=== PATIENT | female | born 1985 | race Caucasian/White ===

== ENCOUNTER 2017-09-27 06:33 | Emergency (ER) | payer OTHER ==
[2017-09-27 07:22] VITALS: BMI 23.6
[2017-09-27 08:44] LABS: BASO % 0.3 % (0.0-2.0); EOS % 0.1 % (0.0-4.0); HEMATOCRIT 32.4 % (34.0-47.0); LYMPH # 1.1 K/uL (1.0-4.3); LYMPH % 9.1 % (20.0-40.0); MEAN CELL VOLUME 77.5 fl (81.0-99.0); MEAN CORPUSCULAR HEMOGLOBIN 25.2 pg (27.0-31.0); MEAN CORPUSCULAR HGB CONC 32.5 g/dL (33.0-37.0); MEAN PLATELET VOLUME 7.9 fl (7.2-11.7); MONO # 0.3 K/uL (0.0-0.8); MONO % 2.4 % (0.0-10.0); NEUT # 10.7 K/uL (1.8-7.0); NEUT % 88.1 % (50.0-75.0); NRBC % 0.1 % (0.0-0.0); PLATELET COUNT 274 K/uL (130-400); WHITE BLOOD COUNT 12.2 K/uL (4.8-10.8)
[2017-09-27 09:02] LABS: ALB/GLOB RATIO 1.1 (1.0-2.1); BILIRUBIN,TOTAL 0.5 mg/dl (0.2-1.3); CALCIUM 8.6 mg/dL (8.4-10.2); CARBON DIOXIDE 20 mmol/L (22-30); CHLORIDE 103 mmol/L (98-107); CHOLESTEROL 192 mg/dL (0-199); GFR AFRICAN-AMERICAN > 60; GLUCOSE,RANDOM 98 mg/dL (65-105); SODIUM 133 mmol/l (132-148); TOTAL PROTEIN 7.6 G/DL (6.3-8.2)
[2017-09-27 09:03] LABS: ALKALINE PHOSPHATASE 65 U/L (38-126); ALT/SGPT 27 U/L (9-52); AST/SGOT 32 U/L (14-36); BLOOD UREA NITROGEN 7 mg/dl (7-17); POTASSIUM 3.9 MMOL/L (3.6-5.0)
[2017-09-27 09:08] LABS: RBC URINE 2 /hpf (0-3); URINE BILIRUBIN NEGATIVE (NEGATIVE); URINE BLOOD NEGATIVE (NEGATIVE); URINE COLOR YELLOW (YELLOW); URINE GLUCOSE (UA) NEG (Normal); URINE KETONE 80 mg/dL (NEGATIVE); URINE LEUKOCYTE ESTERASE SMALL Leu/uL (Negative); URINE PROTEIN NEGATIVE (NEGATIVE); URINE UROBILINOGEN 0.2-1.0 mg/dL (0.2-1.0); WBC URINE 1 /hpf (0-5)
[2017-09-27 09:23] LABS: NEUTROPHIL 84 % (42-75); TOTAL CELLS COUNTED 100
[2017-09-27] MEDS ORDERED: Lactated Ringer's 500 ML IV SCH ×2 (10:15)
--- NOTE | 2017-09-27 12:03 | OBHP ---
Datetime: 09/27/2017 11:51 IP Adm Impression: , intrauterine ; No Active Labor IP Chief Complaint Other: Abd pains and vomiting IP Admit Plan: Discharge home Admit Comment, IP Provider: Pt has been c/o pains and vomiting since early last night did not call b ut went [place] [facility] and had blood work done and sono and "told was all ok" and D/c home no meds Contin ued with sx and came in here this am after more vomiting. Denies any bleeding or ROM. Blood work re viewed and wnl u/a showing + ketones and small leukocytes Denies d;ysuria freq or hematuria Pt was hy drated and monitoring showed no UC D/C home on bed and pelvic rest and rx for Zofram and increased h ydration Instructions given and understands and agreed Extremities - PN: Normal Abdomen - PN: Abnormal Back - PN: Normal Breast - PN: Normal Lungs - PN: Normal Thyroid - PN: Normal Neurologic - PN: Normal General - PN: Normal FHR - Baseline A Provider: 150's by dpler Membranes, Provider: Intact Contraction Comments Provider: none Comments, ACOG Physical Exam: Abd gravid fundus at umb NT FCA + by doppler SVE as above Gestation - Est Wks by US: 21 wks Pool Provider: Negative IP Hx Assessment: The History has been Reviewed and is Current EGA AdmitDate IP: 21.0 IP Chief Complaint: Other NICHD Variability Prov Fetus A: n/A NICHD Accel Fetus A IP Provider: n/a Dilatation, Provider: closed Effacement, Provider: none Genitourinary Exam: Normal DTRs - PN: Normal
--- NOTE | 2017-09-27 12:06 | OBDCSUM ---
Datetime: 09/27/2017 12:02 Discharged to, Provider: Home Follow up at, Provider: Dr Acosta Disch Instr Activity: Bedrest; May be up to bathroom; May be up for meals; May Shower Disch Instr Diet: Regular Discharge Diet restrict Prov: increased hydration Discharge Instructions, Provider: Routine instructions given Discharge Time: 09/27/2017 12:30 Follow up in weeks, Provider: 1 wk Contraception discussed, Prov: No Disch Activity Restrictions: No exercising; No lifting; No driving; Minimize walking; Minimize stair -climbing; No sexual activity; Nothing in vagina - [place], tampons, douche Discharge Comment, Provider: Rx for Zofram given Discharge Diagnosis Prov Other: preg at 21 wks/ abd pains /vomiting episodes Contraception after Delivery: Not Planning to Use
[2017-09-27 18:48] VITALS: BP 107/74; PULSE 96; RESP 16; TEMP 98.1; O2SAT 100
== END 2017-09-27 12:30 | disposition home or self-care (01) ==
LOC: H.EROB2 06:33
DX: O21.0 Mild hyperemesis gravidarum (principal); O26.92 Pregnancy related conditions, unspecified, second trimester; R10.2 Pelvic and perineal pain; Z3A.21 21 weeks gestation of pregnancy
CPT/HCPCS: 80053; 80061; 81003; 85025; 99283; J7120

== ENCOUNTER 2018-01-30 09:09 | Inpatient (IN) | payer OTHER ==
[2018-01-30 09:35] VITALS: BMI 27.3
[2018-01-30] MEDS: Lactated Ringer's 1,000 ML IV SCH ×4 (09:45→18:30)
[2018-01-30] MEDS ORDERED: Oxytocin 30 units/LR 500ML 30 U/500 ML BAG IV SCH (09:45)
[2018-01-30] MEDS ORDERED: Oxytocin 30 units/LR 500ML 30 U/500 ML BAG IV ONE (10:18)
[2018-01-30 10:46] LABS: BASO % 0.3 % (0.0-2.0); EOS % 0.4 % (0.0-4.0); HEMOGLOBIN 11.6 g/dL (12.0-16.0); MEAN CELL VOLUME 71.5 fl (81.0-99.0); MEAN CORPUSCULAR HEMOGLOBIN 23.2 pg (27.0-31.0); MEAN CORPUSCULAR HGB CONC 32.5 g/dL (33.0-37.0); MEAN PLATELET VOLUME 8.9 fl (7.2-11.7); MONO # 0.6 K/uL (0.0-0.8); MONO % 7.1 % (0.0-10.0); NEUT # 6.4 K/uL (1.8-7.0); NEUT % 70.2 % (50.0-75.0); NRBC % 0.3 % (0.0-0.0); RBC 4.98 Mil/uL (3.80-5.20); WHITE BLOOD COUNT 9.1 K/uL (4.8-10.8)
[2018-01-30] MEDS ORDERED: Fentanyl/Bupivacaine HCl 250 ML EPI ONE (13:59)
[2018-01-30] MEDS ORDERED: Lidocaine 2% Inj (20ml) ONE (19:58)
[2018-01-30] MEDS ORDERED: cefOXitin 2 GM in Sodium Chloride 0.9% 100 ML IVPB STA (23:01)
--- NOTE | 2018-01-30 23:01 | OBDS ---
DELIVERY PERSONNEL Delivery Doctor: Yadiel Acosta MD (Annotations: Data stored by [facility] on behalf of user) Supervisor Matrix: Kirill Harding Anesthesiologist: Emery Resident: Yair MATERNAL INFORMATION Delivery Anesthesia: Epidural Medications in Delivery: Oxytocin/Lidocaine Estimated Blood Loss (ml): 300 Placenta Cultured: No Maternal Complications: None Provider Comments: Delivered a living baby boy over a midline episiotomy and a vacum used x1 tried s uscesfully secondary to maternal exaustion Peds in attendence 9/9 Nuchal cord x1 tight clamped and cut prior to full delivery, AF thick meconium stained P lacenta delivered complete and intact Episiotomy and laceration repaired as above. Uterus contracted well Rectal done no defect and good tone noted. Tolerated procedure well no complications LABOR SUMMARY EDC: 02/07/2018 00:00 No. Babies in Womb: 1 Attempted: No Labor Anesthesia: Epidural LABOR INFORMATION Reason for Induction: Not Applicable Onset of Labor: 01/30/2018 13:01 Complete Dilatation: 01/30/2018 17:02 Oxytocin: Augmentation Group B Beta Strep: Negative Antibiotics # of Doses: N/A Antibiotics Time of Last Dose: N/A Steroids Given: None Reason Steroids Not Administered: Not Applicable MEMBRANES Membranes Rupture Method: Artificial Rupture of Membranes: 01/30/2018 16:15 (Annotations: Data stored by [facility] on behalf of user) Length of Rupture (hrs): 5.55 Amniotic Fluid Color: Light Meconium Amniotic Fluid Amount: Moderate STAGES OF LABOR Stage 1 hrs: 4 Stage 1 min: 1 Stage 2 hrs: 4 Stage 2 min: 46 Stage 3 hrs: 0 Stage 3 min: 5 Total Time in Labor hrs: 8 Total Time in Labor min: 52 VAGINAL DELIVERY Episiotomy: Median Laceration Extension: Third Degree Laceration Type: Vaginal Other Laceration: Left sulcus tear Laceration Repair: Yes Laceration Repair Note: left sulcus tear noted repaired with 2-0 chromic continuously and locked Epi siotomy 2nd dg also repaired with 2-0 chromic interrupted for deep repaired and continously for super ficial repair Cervix appears without any lacerations. Repaire done under sedation because of pt very unconfortable Initial Vag Sponge Count: 25 Final Vag Sponge Count: 25 Initial Vag Sharps Count: 4 Final Vag Sharps Count: 4 Sponge Count Correct: Yes Sharps Count Correct: Yes Count Comment: Count correct and verified by RN CSECTION DELIVERY Primary Indication: N/A Secondary Indication: N/A CSection Incision: N/A Uterine Closure: N/A BABY A INFORMATION Delivery Date/Time: 01/30/2018 21:48 Method of Delivery: Vaginal Born in Route : No : N/A Forceps: N/A Vacuum Extraction: Successful Shoulder Dystocia : No ASSISTED DELIVERY BABY A Indication for Assisted Delivery: Maternal exhaustion Catheter Prior to Procedure: Yes Station Vacuum/Forcep Apply: +1 Vacuum Number of Pulls: 1 Vacuum Number of PopOffs: 0 Vacuum Maximum Pressure Obtained: Minimal SHOULDER DYSTOCIA BABY A Delivery Date/Time: 01/30/2018 21:48 PRESENTATION/POSITION BABY A Presentation: Cephalic Cephalic Presentation: Vertex Breech Presentation: N/A PLACENTA INFORMATION BABY A Placenta Delivery Time : 01/30/2018 21:53 Placenta Method of Delivery: Spontaneous Placenta Status: Delivered SCORES BABY A Heart Rate 1 min: >100 bpm Resp Effort 1 min: Good Cry Reflex Irritability 1 min: Cough or Sneeze or Pulls Away Muscle Tone 1 min: Active Motion Color 1 min: Body [place], Extremities Blue Resuscitation Effort 1 min: Tactile Stimulation SCORE 1 MIN: 9 Heart Rate 5 min: >100 bpm Resp Effort 5 min: Good Cry Reflex Irritability 5 min: Cough or Sneeze or Pulls Away Muscle Tone 5 min: Active Motion Color 5 min: Body [place], Extremities Blue Resuscitation Effort 5 min: Tactile Stimulation SCORE 5 MIN: 9 INFORMATION BABY A Gestational Age at Delivery: 38.6 Gestational Status: Term Outcome : Liveborn Condition : Stable Sex: Male IDENTIFICATION/MEDS BABY A ID Band Number: [id number] ID Band Location: Left Leg; Left Arm WEIGHT/LENGTH BABY A Birthweight (gms): 3360 Infant Weight (lb): 7 Infant Weight (oz): 6 CORD INFORMATION BABY A No. Cord Vessels: 3 Nuchal Cord : Around Neck x1, Tight Nuchal Cord Other: N/A True Knot: N/A Infant Cord pH Baby Arterial: N/A Cord pH Baby Venous: N/A Cord Blood Taken: Yes Banking/Donate Info: N/A Infant Suction: Mouth; Nose ASSESSMENT BABY A Infant Complications: Meconium Physical Findings at Delivery: Within Normal Limits Infant Respirations: Appears Normal [employer] Called : No Care By: Dr. Larsen/Nuha Transferred To: Remains with Mother
[2018-01-30] MEDS ORDERED: Oxycodone/Acetaminophen 5/325 mg Tab PO PRN (23:06)
[2018-01-30] MEDS ORDERED: Benzocaine/Menthol SPRAY TOP PRN (23:06)
[2018-01-31 04:25] LABS: HEMOGLOBIN 7.1 g/dL (12.0-16.0); MEAN CELL VOLUME 71.3 fl (81.0-99.0); MEAN CORPUSCULAR HEMOGLOBIN 22.9 pg (27.0-31.0); MEAN CORPUSCULAR HGB CONC 32.2 g/dL (33.0-37.0); RBC 3.08 Mil/uL (3.80-5.20); RED CELL DISTRIBUTION WIDTH 19.2 % (11.5-14.5); WHITE BLOOD COUNT 16.9 K/uL (4.8-10.8)
[2018-01-31] MEDS ORDERED: Levothyroxine 75 MCG TAB PO SCH (06:30)
--- NOTE | 2018-01-31 07:48 | OBPPN ---
Datetime: 01/31/2018 07:36 PP Pain Prov: Within normal limits PP Pain Prov comment: no SOB chest or leg pains PP Nausea Prov: Denies PP Flatus Prov: No PP BM Prov: No PP Nausea Prov comment: no N/v PP Flatus Prov comment: denies C/F PP Breasts Prov: Normal PP Lungs Prov: Normal PP Abdomen/Uterus Prov: Abnormal PP Lochia Prov: Normal PP Vulva/Perineum Prov: Abnormal PP CVA Tenderness Prov: Normal PP Extremities Prov: Normal PP C/S Incision Prov: Not Applicable PP Progress Prov: Normal PP Comments Phys Exam Prov: breast NT not engorged; Abd soft nd, no rebound fundus firm 2 FB below t he umb, NT; Perineum repaired [place] not excessive, Ext no edema or calf tenderness PP Impression Prov: Normal progression PP Plan Prov: Continue present management PP Impression Other Prov: anemia PP Progress Note Prov: not able to urinate so had to be straight cath at 4.25 am of 900cc clear flui d, not voided since then, CBC noted and had decreased so will repeat at noon and start on po iron sin ce not too symptomatic now Continue PP care and will monitoring voiding progress. IP PP Procedures: None Vital Signs Provider PP: Reviewed
[2018-01-31] MEDS ORDERED: Benzocaine/Menthol SPRAY TOP PRN (09:37)
[2018-01-31] MEDS ORDERED: Oxycodone/Acetaminophen 5/325 mg Tab PO PRN (09:37)
[2018-01-31 11:58] LABS: MEAN CELL VOLUME 70.4 fl (81.0-99.0); MEAN CORPUSCULAR HEMOGLOBIN 23.1 pg (27.0-31.0); MEAN CORPUSCULAR HGB CONC 32.8 g/dL (33.0-37.0); RBC 2.67 Mil/uL (3.80-5.20); RED CELL DISTRIBUTION WIDTH 18.9 % (11.5-14.5); WHITE BLOOD COUNT 15.7 K/uL (4.8-10.8)
[2018-01-31 12:04] LABS: HEMOGLOBIN 6.2 g/dL (12.0-16.0)
[2018-02-01 00:14] LABS: BASO % 0.1 % (0.0-2.0); LYMPH # 1.7 K/uL (1.0-4.3); LYMPH % 11.8 % (20.0-40.0); MEAN CORPUSCULAR HEMOGLOBIN 24.9 pg (27.0-31.0); MEAN CORPUSCULAR HGB CONC 33.3 g/dL (33.0-37.0); MEAN PLATELET VOLUME 8.3 fl (7.2-11.7); NEUT # 11.6 K/uL (1.8-7.0); NEUT % 81.1 % (50.0-75.0); RBC 3.3 Mil/uL (3.80-5.20); RED CELL DISTRIBUTION WIDTH 19.8 % (11.5-14.5); WHITE BLOOD COUNT 14.3 K/uL (4.8-10.8)
[2018-02-01 00:36] LABS: HEMOGLOBIN 8.2 g/dL (12.0-16.0); MEAN CELL VOLUME 74.6 fl (81.0-99.0)
[2018-02-01] MEDS ORDERED: Levothyroxine 75 MCG TAB PO SCH (06:30)
--- NOTE | 2018-02-01 08:10 | OBPPN ---
Datetime: 02/01/2018 08:04 PP Pain Prov: Abnormal PP Pain Prov comment: No SOB chest or leg pains PP Nausea Prov: Denies PP Flatus Prov: Yes PP Nausea Prov comment: voiding well PP Breasts Prov: Normal PP Lungs Prov: Normal PP Abdomen/Uterus Prov: Abnormal PP Lochia Prov: Normal PP Vulva/Perineum Prov: Abnormal PP CVA Tenderness Prov: Normal PP Extremities Prov: Normal PP C/S Incision Prov: Not Applicable PP Progress Prov: Normal PP Comments Phys Exam Prov: breast not engorged NT; Abd soft not distended fundus firm below the umb NT Perineum less swollen, repaired [place] mod not excessive Ext no edema or calf tenderness. PP Impression Other Prov: anemia secondary to blood loss s/pblood transfution PP Progress Note Prov: pt still c/o perineal pain Start on sitz baths qid No dizziness or SOB, post transfution CBC noted and stable IP PP Procedures: None Vital Signs Provider PP: Reviewed
[2018-02-02 01:08] VITALS: BP 127/80; PULSE 88; RESP 18; TEMP 98; O2SAT 96
--- NOTE | 2018-02-02 07:49 | OBDCSUM ---
Datetime: 02/02/2018 07:45 Discharged to, Provider: Home Follow up at, Provider: Dr Acosta Disch Instr Activity: Bedrest; May be up to bathroom; May be up for meals; May Shower Disch Instr Diet: Regular Discharge Instructions, Provider: Routine instructions given Discharge Diagnosis, Provider: Term Delivered Discharge Time: 02/01/2018 16:45 Follow up in weeks, Provider: 2 wks Disch Referrals: None Contraception discussed, Prov: Yes Disch Activity Restrictions: No exercising; No lifting; No driving; Minimize walking; Minimize stair -climbing; No sexual activity; Nothing in vagina - [place], tampons, douche Discharge Comment, Provider: sitz baths qid, stool softener and po iron and PNC vit Discharge Diagnosis Prov Other: anemia secondary to blood loss Contraception after Delivery: Undecided
== END 2018-02-01 18:25 | disposition home or self-care (01) | DRG 775 ==
LOC: H.EROB2 09:09 → H.L&D 09:35 → H.OB/GYN 01-31 09:15
PROVIDERS: ADMIT Specialist; ATTEND Specialist
PROC: 10E0XZZ Delivery of Products of Conception, External Approach (ICD-10-PCS; principal; 2018-01-30)
PROC: 0DQR0ZZ Repair Anal Sphincter, Open Approach (ICD-10-PCS; 2018-01-30)
PROC: 4A1HXCZ Monitoring of Products of Conception, Cardiac Rate, External Approach (ICD-10-PCS; 2018-01-30)
DX: O69.1XX0 Labor and delivery complicated by cord around neck, with compression, not applicable or unspecified (principal); O70.20 Third degree perineal laceration during delivery, unspecified; D62 Acute posthemorrhagic anemia; Z37.0 Single live birth; O77.0 Labor and delivery complicated by meconium in amniotic fluid; Z3A.38 38 weeks gestation of pregnancy